=== PATIENT | female | born 1990 | race Caucasian/White ===

== ENCOUNTER 2023-09-18 11:31 | Outpatient (CLI) ==
[2023-09-18 12:47] LABS: Basophils % (A) 0 %; Eosinophils # (A) 0.3 k/uL (0-0.7); Eosinophils % (A) 4 %; HCT 29.3 % (34.0-46.0); HGB 9.4 gm/dL (11.4-16.0); Hypochromasia Slight; Lymphocytes # (A) 1.9 k/uL (1.0-4.8); Lymphocytes % (A) 25 %; MCH 29.9 pg (25.0-35.0); MCHC 32.1 g/dL (31.0-37.0); Monocytes # (A) 0.3 k/uL (0-1.0); Monocytes % (A) 4 %; Neutrophils # (A) 4.8 k/uL (1.3-7.7); Neutrophils % (A) 65 %; Platelet Count 289 k/uL (150-450); RBC 3.16 m/uL (3.80-5.40); WBC 7.4 k/uL (3.8-10.6)
--- NOTE | 2023-09-18 14:28 | US ---
EXAMINATION TYPE: US OB TV Cervical Measurement DATE OF EXAM: 09/18/2023 COMPARISON: NONE REASON FOR EXAM: Per Ordering Physician?this transvaginal scan is to assess the CERVICAL LENGTH for i ncompetence or funneling. GESTATIONAL AGE / DATING Physician Established: Unknown per patient Dates by Current Scan: 32 weeks/3 days ERICA: 11/10/2023 MATERNAL/ SURVEY CERVICAL LENGTH (transvaginal: norm> 2.5cm): 2.1 cm -shortest measurement. Ultrasound evidence of shortened cervix? Yes, cervix measures less than 2.5 cm transvaginally. Ultrasound evidence of funneling? No PRESENTATION: Vertex HEART RATE: 124 bpm RHYTHM: Normal IMPRESSION: Cervical length by transvaginal scanning is mildly diminished at 2.1 cm (normal> 2.5 cm). No funnelin g is seen. Appropriate clinical surveillance recommended to exclude early cervical incompetence.
--- NOTE | 2023-09-18 15:15 | US ---
EXAMINATION TYPE: US OB >= 14 wk fetus DATE OF EXAM: 09/18/2023 COMPARISON: NONE CLINICAL INDICATION: Female, 33 years old with history of No Care; No care. Hx drug use per RN. . TECHNIQUE: Transvaginal (TV) and Transabdominal (TA) EXAM MEASUREMENTS: GESTATIONAL AGE / DATING Physician Established: Unknown Dates by LMP: Unknown per patient Dates by First Scan: No previous at this facility Dates by Current Scan for: (32 weeks/3 days) EDC: 11/10/2023 SURVEY IUP: Single PLACENTA: Posterior, slightly heterogeneous. A cystic area, suspected venous skelton measures 1.0 x 1.1 x 1.1 cm. PREVIA: No previa seen, head seen at internal os on transvaginal exam. YODIT: 10.7 cm Normal CERVICAL LENGTH (transabdominal: norm > 3.0cm): Not seen CERVICAL LENGTH (transvaginal: norm> 2.5cm): 2.1 cm - shortest measurement. (Supplemental transvaginal imaging performed to verify cervical length.) BIOMETRY PRESENTATION: Vertex BPD: 8.06 cm 32 weeks / 3 days HC: 29.30 cm 32 weeks / 3 days AC: 29.37 cm 33 weeks / 3 days FL: 6.0 cm 31 weeks / 2 days ESTIMATED WEIGHT IN GRAMS: 1998 grams ESTIMATED WEIGHT IN LBS/OZ: 4 lbs. 6 oz. WEIGHT PERCENTAGE BASED ON ESTABLISHED DATE: no dates available HC/AC: 1.0 FL/AC: 20% HEART RATE: 124 bpm RHYTHM: Normal ANATOMY SEEN (within normal limits): Outflow tracts: RVOT Stomach Situs Nose / Lips Diaphragm Bladder Three Vessel Cord Legs (bilateral) ANATOMY FOR WHICH MONITORING IS RECOMMENDED: Four Chamber Heart - interatrial septum not well delineated; possible ASD ANATOMY NOT SEEN: due to age and position Longitudinal Spine Transverse Spine Arms (bilateral) Cord Insert Kidneys (bilateral) LVOT Lateral Vent (< 1 cm) Cisterna Magna (< 1.1 cm) Cerebellum (varies with age) Choroid Plexus (bilateral) Midline Falx Cavus Septi Pellucidi Unable to determine gender with certainty-patient aware. Certified Dietary Manager notes: *Cervix appears shortened. IMPRESSION: 1. Single live intrauterine with average gestational age of 32 weeks 3 days by current ultr asound biometry. 2. A number of structures on the survey could not be adequately visualized due to relatively ad vanced age. 3. Follow-up recommended to exclude ASD. The interatrial septum is not well delineated. 4. Cephalic presentation. Posterior placenta without findings of previa. 5. Slight cervical shortening on the transvaginal scan reported separately.
[2023-09-19 03:20] LABS: Hepatitis B Surface Antigen Nonreactive (Nonreactive)
[2023-09-19 05:46] LABS: HIV 2 AB Non-Reactive (Non-Reactive); HIV AB P24 Non-Reactive (Non-Reactive); HIV P24 AG Non-Reactive (Non-Reactive)
--- NOTE | 2023-09-25 16:29 | P.MSEPDOC ---
Presenting Problems - Arrival Data Date of Arrival on Unit: 09/18/23 Time of Arrival on Unit: 11:31 Mode of Transport: Portable - Complaint OB-Reason for Admission/Chief Complaint: Other Comment: Pt presents to triage from [place]. Pt presents with paperwork from facility with stated reason "Verbalizes she is 8 months preg, no PNC. Intermittant confusion-poor oral intake, lethargy, weakness. No improvements with methadone. would like to confirm viable preg and trimester". Medical History - Information : 7 Para: 6 Term: 3 : 0 Abortions: Spontaneous or Elective: 3 Number of Living Children: 3 - Gestational Age Gestational Age by ERICA (wks/days): 32 Weeks and 3 Days - History Complications: No Care, Smoker, Hx. 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 Review of Systems - Review of Systems Constitutional: No problems Breast: No problems ENT: No problems Cardiovascular: No problems Respiratory: No problems Gastrointestinal: No problems Genitourinary: No problems Musculoskeletal: No problems Neurological: No problems Skin: No problems Vital Signs - Temperature Temperature: 97.5 F Temperature Source: Temporal Artery Scan - Pulse Right Brachial Pulse Rate: 57 Pulse Assessment Method: Automatic Cuff - Respirations Respiratory Rate: 16 Oxygen Delivery Method: Room Air O2 Sat by Pulse Oximetry: 97 - Blood Pressure Right Arm Blood Pressure: 128/73 Blood Pressure Mean: 91 Blood Pressure Source: Automatic Cuff Medical Screen Scoring - Assessment - Baby A Baseline FHR: 130 Heart Rate - NICHD Category: Category I (Normal) NST: Reactive Physician Notification - Physician Notified Physician Notified Date: 09/18/23 Physician Notified Time: 12:10 Physician: Erica Espinoza New Order Received: Yes - Notification Comment Comment: Dr. Espinoza called and given report on pt. Pt sent from [place] with written note per facilities requesting to confirm dates. RN discussed pt hx with Pt denies any complaints. VS WNL. Cat 1 FHT. Orders recieved to collect and send labs and to order ob u/s for anatomy to confirm dates and efw. Pt may be discharged if WNL. Maternal Triage Index - Non-Urgent/Priority 4 Non-Urgent Priority 4: Yes Criteria Met for Priority 4: Pt presents to triage from [place]. Pt presents with paperwork from facility with stated reason "Verbalizes she is 8 months preg, no PNC. Intermittant confusion-poor oral intake, lethargy, weakness. No improvements with methadone. would like to confirm viable preg and trimester". Disposition - Disposition OB Disposition: Discharge to home Discharge Date: 09/18/23 Discharge Time: 14:32 I agree with the RN Medical Screening Exam: Yes Physician's MSE Comment: I have neither seen nor examined the patient Case reviewed; plan agreed upon as documented in EMR&OBIX.: Yes Diagnosis: MATERNAL CARE FOR PROBLEM, UNSP, THIRD * DO NOT USE *
== END 2023-09-18 14:32 | disposition home or self-care (01) ==
LOC: FBPOP 11:31
PROVIDERS: ATTEND Obstetrics & Gynecology
DX: O26.893 Other specified pregnancy related conditions, third trimester (principal); R41.0 Disorientation, unspecified; O99.323 Drug use complicating pregnancy, third trimester; O99.333 Smoking (tobacco) complicating pregnancy, third trimester; F17.200 Nicotine dependence, unspecified, uncomplicated; F12.90 Cannabis use, unspecified, uncomplicated; F14.10 Cocaine abuse, uncomplicated; F11.10 Opioid abuse, uncomplicated; Z3A.32 32 weeks gestation of pregnancy
CPT/HCPCS: 59025; 76805; 76817; 85025; 86762; 86780; 86850; 86870; 86880; 86900; 86901; 87340; 87390; 99213